=== PATIENT | female | born 1975 | race Native Hawaiian/Other Pacific Islander ===

== ENCOUNTER 2016-10-06 15:14 | Outpatient (CLI) | payer OTHER ==
[2016-10-06 16:04] LABS: POTASSIUM 3.6 mmol/L (3.6-5.2); SODIUM 137 mmol/L (136-145)
[2016-10-06 16:19] LABS: PLATELET COUNT 305 K/uL (152-353)
== END 2016-10-06 22:07 | disposition home or self-care (01) ==
LOC: LABW 15:14
PROVIDERS: Plastic Surgery Plastic Surgery Within the Head and Neck
DX: Z01.812 Encounter for preprocedural laboratory examination (principal); Z12.31 Encounter for screening mammogram for malignant neoplasm of breast; R73.09 Other abnormal glucose
CPT/HCPCS: 36415; 80048; 85027; G0202-TC

== ENCOUNTER 2016-10-13 12:48 | Outpatient (CLI) | payer OTHER | END 2016-10-13 19:09 | disposition home or self-care (01) | LOC: MAMMO 12:48 | DX: R92.2 Inconclusive mammogram (principal) | CPT/HCPCS: 77066; G0204 ==

== ENCOUNTER 2019-07-02 10:14 | Outpatient (CLI) | payer OTHER | END 2019-07-02 20:17 | disposition home or self-care (01) | LOC: RAD 10:14 | DX: M54.2 Cervicalgia (principal) ==

== ENCOUNTER 2019-07-10 08:14 | Outpatient (CLI) | payer OTHER | END 2019-07-10 21:35 | disposition home or self-care (01) | LOC: CT 08:14 | DX: R10.2 Pelvic and perineal pain (principal) | CPT/HCPCS: 36415; 82565; 84520; Q9963 ==

== ENCOUNTER 2019-07-12 08:53 | Outpatient (CLI) | payer OTHER | END 2019-07-12 22:15 | disposition home or self-care (01) | LOC: MRI 08:53 | DX: M47.22 Other spondylosis with radiculopathy, cervical region (principal) ==

== ENCOUNTER 2019-11-21 08:27 | Outpatient (CLI) | payer OTHER | END 2019-11-21 18:58 | disposition home or self-care (01) | LOC: MRI 08:27 | DX: M54.16 Radiculopathy, lumbar region (principal) ==

== ENCOUNTER 2019-12-23 08:59 | Outpatient (CLI) | payer OTHER | END 2019-12-23 20:08 | disposition home or self-care (01) | LOC: LABW 08:59 | DX: R68.89 Other general symptoms and signs (principal) | CPT/HCPCS: 87635; G2023; U0002 ==

== ENCOUNTER 2020-02-05 10:52 | Outpatient (CLI) | payer OTHER | END 2020-02-05 21:51 | disposition home or self-care (01) | LOC: MAMMO 10:52 | DX: Z85.3 Personal history of malignant neoplasm of breast (principal) | CPT/HCPCS: G0279 ==

== ENCOUNTER 2020-02-18 12:51 | Outpatient (CLI) | payer OTHER | END 2020-02-18 20:07 | disposition home or self-care (01) | LOC: US 12:51 → MAMMO 13:00 → US 20:07 | DX: R92.8 Other abnormal and inconclusive findings on diagnostic imaging of breast (principal) ==

== ENCOUNTER 2022-11-16 13:00 | Outpatient (CLI) | payer OTHER ==
[2022-11-16 13:36] LABS: PLATELET COUNT 317 K/uL (152-353)
[2022-11-16 14:09] LABS: POTASSIUM 3.6 mmol/L (3.6-5.2)
== END 2022-11-16 19:42 | disposition home or self-care (01) ==
LOC: LABW 13:00
PROVIDERS: ATTEND Internal Medicine Cardiovascular Disease
DX: Z79.899 Other long term (current) drug therapy (principal)
CPT/HCPCS: 36415; 80053; 83735; 84443; 85027

== ENCOUNTER 2023-05-12 14:12 | Outpatient (CLI) | payer OTHER | END 2023-05-12 19:11 | disposition home or self-care (01) | LOC: RAD 14:12 | PROVIDERS: ATTEND Registered Nurse | DX: R06.09 Other forms of dyspnea (principal); M54.2 Cervicalgia ==

== ENCOUNTER 2023-06-23 14:28 | Outpatient (CLI) | payer OTHER | END 2023-06-23 19:26 | disposition home or self-care (01) | LOC: MRI 14:28 | PROVIDERS: ATTEND Psychiatry & Neurology Neurology | DX: G43.109 Migraine with aura, not intractable, without status migrainosus (principal) ==